=== PATIENT | female | born 1970 | race African-American/Black ===

== ENCOUNTER 2023-09-22 09:30 | Emergency (ER) | payer OTHER, SELFPAY ==
[2023-09-22 09:31] VITALS: BP 159/94; PULSE 61; RESP 17; TEMP 36.6; O2SAT 95; BMI 37.0
[2023-09-22 10:39] LABS: Urine Volume 10mL (spun)
[2023-09-22 10:42] LABS: Bacteria Urine None Seen; Culture Indicated Urine Cult Not Indicated; RBC Urine 1-5/HPF (0-5/HPF); Squamous Epithelial Cell Urine 1-5 /HPF (0-5/HPF); WBC Urine None Seen (0-5/HPF)
--- NOTE | 2023-09-22 11:31 | ED_ITS ---
HPI - Back Pain/Injury General Chief Complaint: Back Pain/Injury Stated Complaint: lower L back pain, fall Time Seen by Provider: 09/22/23 11:23 Source: patient History of Present Illness HPI Narrative: Patient here with . Patient states she had a ground level fall 4 days ago in their camper. Was walking from bedroom into the bathroom and tripped on some cords landing on her left side. Hitting the floor. Patient is not on any blood thinners. No loss of consciousness. Denies any other injuries. Patient has significant history of lumbar surgery. Patient is on a Dilaudid pain pump. They just moved here from [place]. Got here about a week ago. Prior to departure, 9 days ago, patient was placed on Lokelma for potassium 5.3. She has had decreasing GFR number she states. She states they do not know why she is having changes in your kidney function. Back and left hip exposed for skin exam. Denies any other injuries Related Data Home Medications Medication Instructions Recorded Confirmed albuterol sulfate 90 mcg/actuation 2 puff inhalation Q4-6H PRN COPD 09/22/23 09/22/23 aerosol inhaler (Ventolin HFA) celecoxib 200 mg capsule 200 mg PO SEEINSTR 09/22/23 09/22/23 cholecalciferol (vitamin D3) 50 50 mcg PO DAILY 09/22/23 09/22/23 mcg (2,000 unit) capsule (Vitamin D3) cyclobenzaprine 10 mg tablet 10 mg PO BID 09/22/23 09/22/23 diclofenac sodium 1 % topical gel 2 g topical QID 09/22/23 09/22/23 divalproex 500 mg tablet,extended 500 mg PO DAILY 09/22/23 09/22/23 release 24 hr ferrous sulfate 325 mg (65 mg 325 mg PO BID 09/22/23 09/22/23 iron) tablet hydroxyzine HCl 50 mg tablet 50 mg PO BID 09/22/23 09/22/23 lorazepam 2 mg tablet 2 mg PO Q8HR PRN bipolar with 09/22/23 09/22/23 depression losartan 25 mg tablet 25 mg DAILY 09/22/23 09/22/23 multivitamin 1 tab PO DAILY 09/22/23 09/22/23 oxybutynin chloride 5 mg tablet 5 mg PO BID 09/22/23 09/22/23 pregabalin 100 mg capsule 100 mg PO BID 09/22/23 09/22/23 quetiapine 50 mg tablet 100 mg PO BEDTIME 09/22/23 09/22/23 trazodone 150 mg tablet 300 mg PO BEDTIME 09/22/23 09/22/23 Previous Rx's Medication Instructions Recorded oxycodone-acetaminophen 5 mg-325 1 tab PO Q4-6H PRN pain #20 tabs 09/22/23 mg tablet (Percocet) Allergies Allergy/AdvReac Type Severity Reaction Status Date / Time Penicillins Allergy Verified 09/22/23 09:43 Review of Systems Review of Systems Narrative: GENERAL: negative chills, fatigue, malaise, fever, sweats. HEENT: negative sinus pain, ear pain, sore throat RESPIRATORY: negative dyspnea, cough CARDIOVASCULAR: negative chest pain, palpitations GASTROINTESTINAL: negative nausea, vomiting, abdominal pain : negative dysuria, frequency, hematuria MUSCULOSKELETAL: Positive muscle or bony pain SKIN: negative rash, skin lesions NEUROLOGIC: negative weakness, numbness ROS Unobtainable: All systems reviewed & are unremarkable except as noted in HPI and below Patient History Social History Smoking Status: Current every day smoker Smoking Status: Current every day smoker alcohol intake frequency: a few times a week Substance Use Type: does not use Exam Narrative Exam Narrative: GENERAL: in no distress, not toxic not dyspneic HEAD: Normocephalic. Nontender face and scalp. EYES: Pupils equal round ENT: Mucous membranes moist. NECK: Trachea midline. CARDIOVASCULAR: Regular rate and rhythm RESPIRATORY: Clear to auscultation. Breath sounds equal bilaterally. No wheezes, rales, or rhonchi. There is reproducible left lower rib posteriorly. No bruising flail or crepitus of the ribs GASTROINTESTINAL: Abdomen soft, non-tender EXTREMITIES: No gross deformities. Nontender pelvis, nontender left hip knee and ankle. No bruising seen on the left hip. BACK: No flank tenderness. No midline tenderness or step-off of the cervical thoracic spine. There is tenderness to the lower lumbar spine as well as spasming and muscle tightness and tenderness to the left paralumbar muscles. Patient is able to roll herself to the right. No bruising seen. NEURO: AOx4. Clear speech SKIN: Warm and dry PSYCH: Not anxious, is cooperative Initial Vital Signs Initial Vital Signs: Vital Signs Temperature 97.9 F 09/22/23 09:31 Pulse Rate 61 09/22/23 09:31 Respiratory Rate 17 09/22/23 09:31 Blood Pressure 159/94 H 09/22/23 09:31 Pulse Oximetry 95 09/22/23 09:31 Oxygen Delivery Method Room Air 09/22/23 09:31 Course Orders Ordered: Discontinued Medications Hydromorphone HCl (Hydromorphone 1 Mg Inj) 1 mg IV NOW ONE Stop: 09/22/23 11:58 Last Admin: 09/22/23 12:39 Dose: 1 mg Documented By: NAYE Hydromorphone HCl (Hydromorphone 1 Mg Inj) 1 mg IV NOW ONE Stop: 09/22/23 13:40 Last Admin: 09/22/23 13:48 Dose: 1 mg Documented By: DYLON Ketorolac Tromethamine (Ketorolac 30 Mg/Ml Vial) 15 mg IV NOW ONE Stop: 09/22/23 13:40 Last Admin: 09/22/23 13:50 Dose: 15 mg Documented By: DYLON Vital Signs Vital signs: Vital Signs - 8 hr 09/22/23 09:31 09/22/23 12:41 Temperature 97.9 F Pulse Rate 61 94 H Respiratory Rate 17 14 Blood Pressure 159/94 H 186/90 H Pulse Oximetry 95 99 Oxygen Delivery Method Room Air Room Air MDM - Back Pain/Injury Lab Data 09/22/23 12:35 09/22/23 12:35 Labs: Lab Results 09/22/23 09/22/23 Range/Units 10:09 12:35 WBC 5.9 (4.5-11.0) X10^3/uL RBC 3.89 L (4.0-5.2) X10^6/uL Hgb 11.8 L (12.0-16.0) g/dL Hct 35.5 L (36-46) % MCV 91.1 (80-100) fL MCH 30.3 (26-34) PG MCHC 33.2 (30-36) % RDW 15.1 H (11.6-14.8) % Plt Count 273 (150-400) X10^3/uL Neut % (Auto) 68.4 (50-75) % Lymph % (Auto) 19.3 L (25-40) % [place] % (Auto) 9.8 (3-14) % Eos % (Auto) 2.0 (2-4) % Baso % (Auto) 0.5 (0-2) % Neut # (Auto) 4100 (8487-5767) /uL Lymph # (Auto) 1100 (4435-1685) /uL [place] # (Auto) 600 (0-900) /uL Eos # (Auto) 100 (0-450) /uL Baso # (Auto) 0 (0-100) /uL Sodium 140 (137-145) mmol/L Potassium 4.7 (3.4-5.1) mmol/L Chloride 109 H (98-107) mmol/L Carbon Dioxide 29 (22-32) mmol/L BUN 22 H (7-17) mg/dL Creatinine 1.63 H (0.52-1.04) mg/dL Estimated GFR 37 L (>60) mL/min BUN/Creatinine Ratio 13.5 (6-22) Glucose 103 H (70-100) mg/dL Calcium 9.2 (8.4-10.2) mg/dL Total Bilirubin 0.3 (0.2-1.3) mg/dL AST 21 (14-36) IU/L ALT 10 (<35) IU/L Alkaline Phosphatase 97 (38-126) U/L Total Protein 7.6 (6.3-8.2) g/dL Albumin 4.0 (3.5-5.0) g/dL Globulin 3.6 (1.7-4.1) g/dL Albumin/Globulin Ratio 1.1 (1.0-2.8) Urine RBC 1-5/hpf (0-5/HPF) Urine WBC None seen (0-5/HPF) Ur Squamous Epith Cells 1-5 /hpf (0-5/HPF) Urine Bacteria None seen (None) Ur Culture Indicated? Cult not indicated Vol Urine Centrifuged 10ml (spun) Urine Dip Bedside Urine Glucose Negative Bedside Urine Bilirubin - Negative Bedside Urine Ketone - Negative Urine Specific [place] 1.015 Bedside Urine Occult Blood +/- Bedside Urine pH 6.0 Bedside Urine Protein ++ 100 Bedside Urine Urobilinogen - Negative Bedside Urine Nitrite - Negative Bedside Urine Leukocytes - Negative Esterase Imaging Data CT chest abdomen pelvis: Radiologist's Impression: [address] [address] [address] Scan Report Signed Patient: Rafael El MR#: [id number] : 1970 Acct:[id number] Age/Sex: 52 / F Date of Service: 09/22/23 Loc: ED Accession Number: [id number] Procedure: CT chest abd pel wo con Ordering Provider: Alex Rea MD PROCEDURE: CT CHEST ABD PEL WO CON INDICATIONS: Trauma/fall/left side pain TECHNIQUE: After the administration of oral contrast, 5 mm thick sections acquired from the lung apices to the symphysis pubis. 5 mm thick coronal and sagittal reformats acquired, with additional 7 mm coronal MIP reformats through the lungs. For radiation dose reduction, the following was used: automated exposure control, adjustment of mA and/or kV according to patient size. COMPARISON: None. FINDINGS: Image quality: Diagnostic. CHEST: Lower Neck: No enlarged lymph nodes. Thyroid: Enlarged. Few small hypodensities are noted. Axillae: No enlarged lymph nodes. Chest Wall: Unremarkable. Bones: Unremarkable. Lungs and Pleura: No pneumothorax or pleural effusions. Mild periapical emphysematous changes at the apices. Scattered areas of subtle ground-glass involving the bilateral upper lobes and left lower lobe. Few small subpleural and perifissural nodules, favored to represent benign intrapulmonary lymph nodes. Heart: Heart size is normal. No pericardial effusion. Thoracic Vessels: The aorta and pulmonary arteries demonstrate normal size. Mediastinum and Geetha: No enlarged lymph nodes. Esophagus: No wall thickening. No hiatal hernia. ABDOMEN: Liver: No solid mass. Gallbladder: No radiopaque gallstones or wall thickening. Biliary ducts: No biliary dilation. Pancreas: No ductal dilation. Spleen: Size is within normal limits. Adrenal Glands: No adrenal nodules. Kidneys and Ureters: No hydronephrosis. No solid mass. No complex renal cystic lesion which requires follow up. Stomach and Bowel: Postoperative changes noted within the stomach, possibly from gastric bypass. Small hiatal hernia. Normal colonic caliber, without significant wall thickening. Moderate to large burden of stool throughout the colon. Peritoneum: No abnormal intraperitoneal fluid. No free air. Ventral Wall: No hernia. Abdominal Nodes: No retroperitoneal or mesenteric adenopathy by size criteria. Vessels: Aorta and inferior vena cava are normal in size. PELVIS: Pelvic Organs: Unremarkable. Bladder: Unremarkable. Pelvic Nodes: No enlarged lymph nodes. Miscellaneous: No inguinal hernias are seen. Bones: No aggressive osseous abnormality. L3 through S1 spinal fixation hardware. Spinal cord stimulator in place. IMPRESSION: No acute traumatic injury is identified within the chest, abdomen or pelvis. Scattered areas of subtle ground-glass are seen involving the bilateral upper lobes and left lower lobe, nonspecific and may be infectious in etiology. Moderate to large burden of stool throughout the colon, correlate for constipation. Dictated by: Brad Hardy M.D. on 09/22/2023 at 13:30 Approved by: Brad Hardy M.D. on 09/22/2023 at 13:[address] [facility] Narrative Medical decision making narrative: Patient here with . Patient states she had a ground level fall 4 days ago in their camper. Was walking from bedroom into the bathroom and tripped on some cords landing on her left side. Hitting the floor. Patient is not on any blood thinners. No loss of consciousness. Denies any other injuries. Patient has significant history of lumbar surgery. Patient is on a Dilaudid pain pump. They just moved here from [place]. Got here about a week ago. Prior to departure, 9 days ago, patient was placed on Lokelma for potassium 5.3. She has had decreasing GFR number she states. She states they do not know why she is having changes in your kidney function. Back and left hip exposed for skin exam. Denies any other injuries After history and exam CBC CMP CT chest abdomen pelvis Dilaudid [facility] Medical records reviewed: No recent visit for this complaint Differential considered: Includes but not limited to lumbar fracture lumbar strain rib fracture pelvic fracture Lab Test results independently reviewed as above. Pertinent findings: WBC 5.9 hemoglobin 11.8 sodium 140 potassium 4.7 BUN 22 creatinine 1.63 GFR 37 Imaging studies independently reviewed: CT chest abdomen pelvis no acute finding Treatments: Dilaudid Toradol Re-evaluations: 3:29 p.m.. Updated patient results. Pain is much better. Patient is sitting up doing work on the bedside table. Patient has eaten here. She is appointment October 10 and she is requesting short course of pain medication prescription until her 1st appointment as she just moved here. Return precautions reviewed. They desire discharge home Discussion: Appropriate for discharge home. Patient has appointment October 10 with primary care for the 1st time. Return precautions reviewed. Short course of pain medication provided. Nontoxic at discharge. Patient and desire discharge home. Exam and laboratory studies and imaging studies otherwise reassuring. Renal function is essentially at baseline with improved potassium Diagnosis: Contusion of the back, chronic kidney disease Discharge Plan Departure Patient Disposition: Home Clinical Impression: Acute low back pain due to trauma, Encounter for medication refill Chronic kidney disease Qualifiers: Chronic kidney disease stage: unspecified stage Qualified Code(s): N18.9 - Chronic kidney disease, unspecified Instructions: Chronic Kidney Disease, DI for Contusion Activity Restrictions/Additional Instructions: No driving or operating machinery. Short course of pain medication has been provided for you. Please see your new provider October 10 as scheduled. Return if worse if any questions or concerns. You will need to have your kidney function blood work redone with your family doctor. Keep well hydrated. Today's laboratory studies are otherwise reassuring and the CT scan imaging as well. Prescriptions: New oxycodone-acetaminophen [Percocet] 5-325 mg tablet 1 tab PO Q4-6H PRN (Reason: pain) Qty: 20 0RF No Action hydroxyzine HCl 50 mg Tablet 50 mg PO BID divalproex 500 mg Tablet Extended Release 24 Hr 500 mg PO DAILY losartan 25 mg Tablet 25 mg DAILY multivitamin [Daily Multivitamin] Tablet 1 tab PO DAILY celecoxib 200 mg Capsule 200 mg PO SEEINSTR Rx Instructions: with every meal cyclobenzaprine 10 mg Tablet 10 mg PO BID lorazepam 2 mg Tablet 2 mg PO Q8HR PRN (Reason: bipolar with depression) trazodone 150 mg Tablet 300 mg PO BEDTIME ferrous sulfate 325 mg (65 mg iron) Tablet 325 mg PO BID albuterol sulfate [Ventolin HFA] 90 mcg/actuation Hfa Aerosol Inhaler 2 puff INHALATION Q4-6H PRN (Reason: COPD) oxybutynin chloride 5 mg Tablet 5 mg PO BID pregabalin 100 mg Capsule 100 mg PO BID Rx Instructions: every 12 hours quetiapine 50 mg Tablet 100 mg PO BEDTIME diclofenac sodium 1 % Gel 2 g TOPICAL QID Rx Instructions: apply to single elbow, wrist or hand; for hand includes palm/fingers/back of hand cholecalciferol (vitamin D3) [Vitamin D3] 50 mcg (2,000 unit) Capsule 50 mcg PO DAILY Stand Alone Forms: Patient Portal/API
--- NOTE | 2023-09-22 11:57 | DI.CT.S_ITS ---
PROCEDURE: CT CHEST ABD PEL WO CON INDICATIONS: Trauma/fall/left side pain TECHNIQUE: After the administration of oral contrast, 5 mm thick sections acquired from the lung apices to the symphysis pubis. 5 mm thick coronal and sagittal reformats acquired, with additional 7 mm coronal MIP reformats through the lungs. For radiation dose reduction, the following was used: automated exposure control, adjustment of mA and/or kV according to patient size. COMPARISON: None. FINDINGS: Image quality: Diagnostic. CHEST: Lower Neck: No enlarged lymph nodes. Thyroid: Enlarged. Few small hypodensities are noted. Axillae: No enlarged lymph nodes. Chest Wall: Unremarkable. Bones: Unremarkable. Lungs and Pleura: No pneumothorax or pleural effusions. Mild periapical emphysematous changes at the apices. Scattered areas of subtle ground-glass involving the bilateral upper lobes and left lower lobe. Few small subpleural and perifissural nodules, favored to represent benign intrapulmonary lymph nodes. Heart: Heart size is normal. No pericardial effusion. Thoracic Vessels: The aorta and pulmonary arteries demonstrate normal size. Mediastinum and Geetha: No enlarged lymph nodes. Esophagus: No wall thickening. No hiatal hernia. ABDOMEN: Liver: No solid mass. Gallbladder: No radiopaque gallstones or wall thickening. Biliary ducts: No biliary dilation. Pancreas: No ductal dilation. Spleen: Size is within normal limits. Adrenal Glands: No adrenal nodules. Kidneys and Ureters: No hydronephrosis. No solid mass. No complex renal cystic lesion which requires follow up. Stomach and Bowel: Postoperative changes noted within the stomach, possibly from gastric bypass. Small hiatal hernia. Normal colonic caliber, without significant wall thickening. Moderate to large burden of stool throughout the colon. Peritoneum: No abnormal intraperitoneal fluid. No free air. Ventral Wall: No hernia. Abdominal Nodes: No retroperitoneal or mesenteric adenopathy by size criteria. Vessels: Aorta and inferior vena cava are normal in size. PELVIS: Pelvic Organs: Unremarkable. Bladder: Unremarkable. Pelvic Nodes: No enlarged lymph nodes. Miscellaneous: No inguinal hernias are seen. Bones: No aggressive osseous abnormality. L3 through S1 spinal fixation hardware. Spinal cord stimulator in place. IMPRESSION: No acute traumatic injury is identified within the chest, abdomen or pelvis. Scattered areas of subtle ground-glass are seen involving the bilateral upper lobes and left lower lobe, nonspecific and may be infectious in etiology. Moderate to large burden of stool throughout the colon, correlate for constipation. Dictated by: Brad Hardy M.D. on 09/22/2023 at 13:30 Approved by: Brad Hardy M.D. on 09/22/2023 at 13:40
[2023-09-22] MEDS: HYDROMORPHONE 1 MG INJ IV ×2 (12:39→13:48)
[2023-09-22 12:41] VITALS: BP 186/90; PULSE 94; RESP 14; O2SAT 99
[2023-09-22 12:46] LABS: Add Manual Diff / Slide Review NO; Basophils Absolute Auto 0 /uL (0-100); Basophils Percent Auto 0.5 % (0-2); Eosinophils Absolute Auto 100 /uL (0-450); Hematocrit 35.5 % (36-46); Hemoglobin 11.8 g/dL (12.0-16.0); Lymphocytes Absolute Auto 1100 /uL (1100-4500); Lymphocytes Percent Auto 19.3 % (25-40); Mean Corpuscular HGB Conc 33.2 % (30-36); Mean Corpuscular Hemoglobin 30.3 PG (26-34); Mean Corpuscular Volume 91.1 fL (80-100); Monocytes Absolute Auto 600 /uL (0-900); Monocytes Percent Auto 9.8 % (3-14); Neutrophils Absolute Auto 4100 /uL (1500-7000); Neutrophils Percent Auto 68.4 % (50-75); Platelet Count 273 X10^3/uL (150-400); Red Blood Cell Count 3.89 X10^6/uL (4.0-5.2); Red Cell Distribution Width 15.1 % (11.6-14.8); White Blood Cell Count 5.9 X10^3/uL (4.5-11.0)
[2023-09-22 13:11] LABS: Alanine Aminotransferase 10 IU/L (<35); Albumin Globulin Ratio 1.1 (1.0-2.8); Alkaline Phosphatase 97 U/L (38-126); Aspartate Aminotransferase 21 IU/L (14-36); BUN Creatinine Ratio 13.5 (6-22); Bilirubin Total 0.3 mg/dL (0.2-1.3); Blood Urea Nitrogen 22 mg/dL (7-17); Calcium 9.2 mg/dL (8.4-10.2); Carbon Dioxide 29 mmol/L (22-32); Chloride 109 mmol/L (98-107); Estimated Glomerular Filt Rate 37 mL/min (>60); Globulin 3.6 g/dL (1.7-4.1); Glucose 103 mg/dL (70-100); HEMOLYSIS < 15 (0-50); Potassium 4.7 mmol/L (3.4-5.1); Sodium 140 mmol/L (137-145); Total Protein 7.6 g/dL (6.3-8.2)
[2023-09-22] MEDS: KETOROLAC 30 MG/ML VIAL 15 MG IV (13:50)
[2023-09-22 15:44] VITALS: BP 200/99; PULSE 99; RESP 18; O2SAT 96
== END 2023-09-22 15:46 | disposition home or self-care (01) ==
PROVIDERS: Emergency Provider Emergency Medicine
DX: M54.50 Low back pain, unspecified (principal); N18.9 Chronic kidney disease, unspecified; Z76.0 Encounter for issue of repeat prescription; W01.0XXA Fall on same level from slipping, tripping and stumbling without subsequent striking against object, initial encounter; Z79.899 Other long term (current) drug therapy
CPT/HCPCS: 36415; 71250; 74176; 80053; 81003; 81015; 85025; 96374; 96375; 96376; 99284; J1170; J1885

== ENCOUNTER 2023-10-21 09:18 | Emergency (ER) | payer OTHER, SELFPAY ==
[2023-10-21 09:37] VITALS: BP 180/99; PULSE 84; RESP 20; TEMP 36.4; O2SAT 98; BMI 35.5
[2023-10-21 10:21] LABS: Appearance Urine UA SL CLOUDY; Bilirubin Urine UA NEGATIVE (NEGATIVE); Color Urine UA YELLOW; Glucose Urine UA NEGATIVE (Negative); Ketones Urine UA NEGATIVE (NEGATIVE); Leukocyte Esterase Urine UA NEGATIVE (NEGATIVE); Nitrite Urine UA NEGATIVE (Negative); Occult Blood Urine UA 3+ (Negative); Protein Urine UA 3+ (Negative); Specific Gravity Urine UA 1.025 (1.000-1.035); Urobilinogen Urine UA 0.2 E.U./dL (0.2); pH Urine UA 5.5 (4.5-8.0)
[2023-10-21 10:26] LABS: Bacteria Urine None Seen; Culture Indicated Urine Cult Not Indicated; RBC Urine 5-10/HPF (0-5/HPF); Squamous Epithelial Cell Urine 5-10 /HPF (0-5/HPF); Urine Volume 10mL (spun); WBC Urine None Seen (0-5/HPF)
--- NOTE | 2023-10-21 10:27 | ED_ITS ---
HPI - Back Pain/Injury General Chief Complaint: Back Pain/Injury Stated Complaint: chronic back pain, panic attacks Time Seen by Provider: 10/21/23 10:24 Source: patient, RN notes reviewed and old records reviewed Mode of arrival: Wheelchair Limitations: no limitations History of Present Illness HPI Narrative: 52-year-old female with history of chronic back pain, depression, hypertension, chronic kidney disease who has Dilaudid pain pump as well as neurostimulator. Patient was seen on 09/22/2023 here for increased back pain after a ground level fall. Patient states no new falls since then. She describes chronic back pain that has been slowly worsening over time. She did have some flares after moving from [place] to [place] and ultimately had her Dilaudid pain pump refilled that is seemed to improve her for some period of time. Patient states she tends to have more bad days than good at this rate. She has seen Dr. Watkins with PMR and ever it for her back with PMR she states they did not refill her medications would include lorazepam. She states that they asked her to try to get to referral through to be seen for her but they has been unsuccessful and were told there was no room at [facility]. States she was taking some narcotic pain medication for breakthrough pain. Patient has not had any new changes in terms of new weakness, numbness, she has not had any new loss of b owel or bladder control, no fevers, she has not had nausea or vomiting. She states she has chronic paresthesias down her right leg but no increase her new weakness. She did see a primary care physician who she states older she could not have any refills of controlled substances. Related Data Home Medications Medication Instructions Recorded Confirmed albuterol sulfate 90 mcg/actuation 2 puff inhalation Q4-6H PRN COPD 09/22/23 09/22/23 aerosol inhaler (Ventolin HFA) celecoxib 200 mg capsule 200 mg PO SEEINSTR 09/22/23 09/22/23 cholecalciferol (vitamin D3) 50 50 mcg PO DAILY 09/22/23 09/22/23 mcg (2,000 unit) capsule (Vitamin D3) cyclobenzaprine 10 mg tablet 10 mg PO BID 09/22/23 09/22/23 diclofenac sodium 1 % topical gel 2 g topical QID 09/22/23 09/22/23 divalproex 500 mg tablet,extended 500 mg PO DAILY 09/22/23 09/22/23 release 24 hr ferrous sulfate 325 mg (65 mg 325 mg PO BID 09/22/23 09/22/23 iron) tablet hydroxyzine HCl 50 mg tablet 50 mg PO BID 09/22/23 09/22/23 lorazepam 2 mg tablet 2 mg PO Q8HR PRN bipolar with 09/22/23 09/22/23 depression losartan 25 mg tablet 25 mg DAILY 09/22/23 09/22/23 multivitamin 1 tab PO DAILY 09/22/23 09/22/23 oxybutynin chloride 5 mg tablet 5 mg PO BID 09/22/23 09/22/23 pregabalin 100 mg capsule 100 mg PO BID 09/22/23 09/22/23 quetiapine 50 mg tablet 100 mg PO BEDTIME 09/22/23 09/22/23 trazodone 150 mg tablet 300 mg PO BEDTIME 09/22/23 09/22/23 Previous Rx's Medication Instructions Recorded oxycodone-acetaminophen 5 mg-325 1 tab PO Q4-6H PRN pain #20 tabs 09/22/23 mg tablet (Percocet) hydrocodone 5 mg-acetaminophen 325 1 tab PO QID PRN pain #20 tabs 10/21/23 mg tablet lorazepam 0.5 mg tablet 0.5 mg PO TID PRN pain #10 tabs 10/21/23 Allergies Allergy/AdvReac Type Severity Reaction Status Date / Time Penicillins Allergy Verified 09/22/23 09:43 Review of Systems Review of Systems ROS Unobtainable: All systems reviewed & are unremarkable except as noted in HPI and below Patient History Social History Smoking Status: Current every day smoker Smoking Status: Current every day smoker alcohol intake frequency: a few times a week Substance Use Type: does not use Exam Narrative Exam Narrative: GENERAL: Alert and oriented x three, female in mild distress. HEENT: Head normocephalic, atraumatic, EOMI, pupils reactive, face symmetric, moist mucous membranes NECK: Supple, full range of motion CARDIOVASCULAR: Regular rate and rhythm without murmurs, rubs or gallops. RESPIRATORY: Breath sounds equal bilaterally, no wheezes rales or rhonchi. ABDOMEN: Soft, nontender. Normoactive bowel sounds all 4 quadrants. No guarding or rebound, rigidity, no mass : No CVA tenderness BACK: No cervical, thoracic or lumbar vertebral point tenderness. Patient's has incisions consistent with prior surgeries. No erythema warmth or fluid collections. Patient does have increased discomfort with movement particularly [id number] and flexion-extension, Patient has decreased range of motion. No saddle anesthesia. Muscle strength is 5/5 in lower extremities, DTRs are 2/4 and lower extremities. Dorsalis pedis and tibialis pulses are 2+ and lower extremities. Sensation is intact in the lower extremities. EXTREMITIES: Normal range of motion, no clubbing or edema. Neurovascularly intact NEUROLOGICAL: Cranial nerves II through XII grossly intact. Moving all extremities SKIN: Warm, dry, no petechiae, no rashes or lesions. Initial Vital Signs Initial Vital Signs: Vital Signs Temperature 97.6 F 10/21/23 09:37 Pulse Rate 84 10/21/23 09:37 Respiratory Rate 20 10/21/23 09:37 Blood Pressure 180/99 H 10/21/23 09:37 Pulse Oximetry 98 10/21/23 09:37 Oxygen Delivery Method Room Air 10/21/23 09:37 Course Orders Ordered: ED Orders 10/21/23 10:10 Urinalysis and Microscopic Stat Discontinued Medications Hydromorphone HCl (Hydromorphone 1 Mg Inj) 1 mg IM NOW ONE Stop: 10/21/23 10:55 Last Admin: 10/21/23 11:04 Dose: 1 mg Documented By: TSERING Lorazepam (Lorazepam 0.5 Mg Tablet) 1 mg PO NOW ONE Stop: 10/21/23 10:55 Last Admin: 10/21/23 11:04 Dose: 1 mg Documented By: TSERING Vital Signs Vital signs: Vital Signs - 8 hr 10/21/23 11:23 Pulse Rate 85 Respiratory Rate 22 Blood Pressure 154/87 H Pulse Oximetry 98 Oxygen Delivery Method Room Air MDM - Back Pain/Injury Lab Data Labs: Lab Results 10/21/23 Range/Units 10:10 Urine Color Yellow Urine Appearance Sl cloudy Urine pH 5.5 (4.5-8.0) Ur Specific Campus 1.025 (1.000-1.035) Urine Protein 3+ H (Negative) Urine Glucose (UA) Negative (Negative) g/dL Urine Ketones Negative (NEGATIVE) Urine Occult Blood 3+ H (Negative) Urine Nitrate Negative (Negative) Urine Bilirubin Negative (NEGATIVE) Urine Urobilinogen 0.2 (0.2) E.U./dL Ur Leukocyte Esterase Negative (NEGATIVE) Urine RBC 5-10/hpf H (0-5/HPF) Urine WBC None seen (0-5/HPF) Ur Squamous Epith Cells 5-10 /hpf H (0-5/HPF) Urine Bacteria None seen (None) Ur Culture Indicated? Cult not indicated Vol Urine Centrifuged 10ml (spun) MDM Narrative Medical decision making narrative: This is a 52-year-old female with acute on chronic low back pain with no neurostimulator and Dilaudid pain pump in place. Patient did have a fall a month ago and had CT imaging at that which showed no acute change. No new traumatic injuries. Patient has not had any other fevers or infectious changes. She has not had any changes in the pattern of her pain. She has tried to establish with PMR and get referral for a surgical attendant but has been unsuccessful. She did not have any of her chronic pain medications including lorazepam or her chronic narcotic pain medications refilled by primary care or the PMR specialist that she was established with. Discussed with patient alternative options for follow-up. Discussed with patient she can try some of the larger facilities may have options as well. We will give a short course of pain medication refill but we will need to follow up with either primary care or the subspecialist remote computer terminal operator. Patient's urine has not blood, no nitrates or leukocyte esterase. Patient has known chronic kidney disease she has not had any increased flank pain she has not suspicious for stones or other causes. She defers any further imaging or lab workup today. Her GFR was 37 on her last check on 09/22/2023 here at our facility which according to the patient is likely close to her baseline. Discharge Plan Departure Patient Disposition: Home Clinical Impression: Acute exacerbation of chronic low back pain Activity Restrictions/Additional Instructions: You can try some of the larger facilities to see if they have a subspecialist that would be helpful such as [facility], [facility], [facility] or [facility] if [facility] did not accept she was patient. Take medications as prescribed. This medication can make you sleepy do not drive, perform hazardous activities or make any major decisions while taking it. This medication will make you constipated please take a stool softener once to twice daily until stools are soft and regular. Prescriptions were sent to [facility] in [place]. Please return for fevers, new loss of bowel or bladder control, weakness, inability to lift or move your extremities, persistent vomiting, new abdominal back or flank pain or other new or concerning changes. Prescriptions: New hydrocodone-acetaminophen 5-325 mg tablet 1 tab PO QID PRN (Reason: pain) Qty: 20 0RF lorazepam 0.5 mg tablet 0.5 mg PO TID PRN (Reason: pain) Qty: 10 0RF No Action hydroxyzine HCl 50 mg Tablet 50 mg PO BID divalproex 500 mg Tablet Extended Release 24 Hr 500 mg PO DAILY losartan 25 mg Tablet 25 mg DAILY multivitamin [Daily Multivitamin] Tablet 1 tab PO DAILY celecoxib 200 mg Capsule 200 mg PO SEEINSTR Rx Instructions: with every meal cyclobenzaprine 10 mg Tablet 10 mg PO BID lorazepam 2 mg Tablet 2 mg PO Q8HR PRN (Reason: bipolar with depression) trazodone 150 mg Tablet 300 mg PO BEDTIME ferrous sulfate 325 mg (65 mg iron) Tablet 325 mg PO BID albuterol sulfate [Ventolin HFA] 90 mcg/actuation Hfa Aerosol Inhaler 2 puff INHALATION Q4-6H PRN (Reason: COPD) oxybutynin chloride 5 mg Tablet 5 mg PO BID pregabalin 100 mg Capsule 100 mg PO BID Rx Instructions: every 12 hours quetiapine 50 mg Tablet 100 mg PO BEDTIME diclofenac sodium 1 % Gel 2 g TOPICAL QID Rx Instructions: apply to single elbow, wrist or hand; for hand includes palm/fingers/back of hand cholecalciferol (vitamin D3) [Vitamin D3] 50 mcg (2,000 unit) Capsule 50 mcg PO DAILY oxycodone-acetaminophen [Percocet] 5-325 mg tablet 1 tab PO Q4-6H PRN (Reason: pain) Qty: 20 0RF Stand Alone Forms: Patient Portal/API
[2023-10-21] MEDS: HYDROMORPHONE 1 MG INJ IM (11:04)
[2023-10-21] MEDS: LORazepam 0.5 MG TABLET 1 MG PO (11:04)
[2023-10-21 11:23] VITALS: BP 154/87; PULSE 85; RESP 22; O2SAT 98
== END 2023-10-21 11:24 | disposition home or self-care (01) ==
PROVIDERS: Emergency Provider Emergency Medicine
DX: G89.29 Other chronic pain (principal); M54.50 Low back pain, unspecified
CPT/HCPCS: 81001; 96372; 99283; J1170

== ENCOUNTER → 2024-08-30 09:44 | Outpatient (CLI) | payer OTHER, SELFPAY ==
[2024-08-30 10:26] LABS: Add Manual Diff / Slide Review NO; Basophils Absolute Auto 0 /uL (0-100); Basophils Percent Auto 0.3 % (0-2); Eosinophils Absolute Auto 100 /uL (0-450); Eosinophils Percent Auto 2.2 % (2-4); Hematocrit 33.1 % (36-46); Lymphocytes Absolute Auto 1700 /uL (1100-4500); Lymphocytes Percent Auto 26.6 % (25-40); Mean Corpuscular HGB Conc 33.3 % (30-36); Mean Corpuscular Hemoglobin 30.8 PG (26-34); Mean Corpuscular Volume 92.4 fL (80-100); Monocytes Absolute Auto 500 /uL (0-900); Monocytes Percent Auto 8.6 % (3-14); Neutrophils Absolute Auto 3900 /uL (1500-7000); Neutrophils Percent Auto 62.3 % (50-75); Platelet Count 142 X10^3/uL (150-400); Red Blood Cell Count 3.58 X10^6/uL (4.0-5.2); Red Cell Distribution Width 15.1 % (11.6-14.8); White Blood Cell Count 6.3 X10^3/uL (4.5-11.0)
[2024-08-30 10:45] LABS: BUN Creatinine Ratio 14.4 (6-22); Blood Urea Nitrogen 46 mg/dL (7-17); Calcium 9.3 mg/dL (8.4-10.2); Carbon Dioxide 20 mmol/L (22-32); Chloride 108 mmol/L (98-107); Estimated Glomerular Filt Rate 16 mL/min (>60); Glucose 106 mg/dL (70-100); HEMOLYSIS < 15 (0-50); Potassium 4.4 mmol/L (3.4-5.1); Sodium 138 mmol/L (137-145)
[2024-08-30 10:47] LABS: Creatinine Urine Random 83.91 mg/dL
[2024-08-30 11:23] LABS: Microalbumin Urine Random > 114.0 mg/dL (0-1.6)
== END ==
PROVIDERS: PCP Family Medicine; Referring Provider Family Medicine; Visit Provider Family Medicine
DX: I10 Essential (primary) hypertension (principal); N18.9 Chronic kidney disease, unspecified; R23.2 Flushing; R51.9 Headache, unspecified; F31.9 Bipolar disorder, unspecified; Z13.6 Encounter for screening for cardiovascular disorders; R53.83 Other fatigue
CPT/HCPCS: 36415; 80048; 82043; 82570; 85025

== ENCOUNTER → 2024-09-07 07:07 | Outpatient (CLI) | payer OTHER, SELFPAY ==
[2024-09-07 08:30] LABS: BUN Creatinine Ratio 14.5 (6-22); Blood Urea Nitrogen 49 mg/dL (7-17); Calcium 9.1 mg/dL (8.4-10.2); Carbon Dioxide 24 mmol/L (22-32); Chloride 109 mmol/L (98-107); Estimated Glomerular Filt Rate 15 mL/min (>60); Glucose 94 mg/dL (70-100); HEMOLYSIS < 15 (0-50); Potassium 4.9 mmol/L (3.4-5.1); Sodium 139 mmol/L (137-145)
== END ==
PROVIDERS: PCP Family Medicine; Referring Provider Family Medicine; Visit Provider Family Medicine
DX: M79.7 Fibromyalgia (principal); F31.9 Bipolar disorder, unspecified; N18.9 Chronic kidney disease, unspecified; M54.9 Dorsalgia, unspecified; I67.1 Cerebral aneurysm, nonruptured; G89.29 Other chronic pain; I12.9 Hypertensive chronic kidney disease with stage 1 through stage 4 chronic kidney disease, or unspecified chronic kidney disease
CPT/HCPCS: 36415; 80048

== ENCOUNTER 2024-10-12 10:54 | Emergency (ER) | payer OTHER, SELFPAY ==
[2024-10-12] VITALS (30 sets, daily range): BP systolic 162–198; BP diastolic 88–129; PULSE 79–94; RESP 18–38; TEMP 36.2–36.8; O2SAT 95–100; BMI 30.5
[2024-10-12 11:56] LABS: Add Manual Diff / Slide Review NO; Basophils Absolute Auto 0 /uL (0-100); Basophils Percent Auto 0.4 % (0-2); Eosinophils Absolute Auto 100 /uL (0-450); Eosinophils Percent Auto 1.3 % (2-4); Hematocrit 35.3 % (36-46); Hemoglobin 11.9 g/dL (12.0-16.0); Lymphocytes Absolute Auto 1100 /uL (1100-4500); Mean Corpuscular HGB Conc 33.7 % (30-36); Mean Corpuscular Hemoglobin 30.5 PG (26-34); Mean Corpuscular Volume 90.6 fL (80-100); Monocytes Absolute Auto 400 /uL (0-900); Monocytes Percent Auto 5.5 % (3-14); Neutrophils Absolute Auto 5400 /uL (1500-7000); Neutrophils Percent Auto 77.8 % (50-75); Platelet Count 133 X10^3/uL (150-400); Red Blood Cell Count 3.89 X10^6/uL (4.0-5.2); Red Cell Distribution Width 15.4 % (11.6-14.8)
[2024-10-12 11:59] LABS: Alanine Aminotransferase 14 IU/L (<35); Albumin 3.8 g/dL (3.5-5.0); Alkaline Phosphatase 57 U/L (38-126); Aspartate Aminotransferase 25 IU/L (14-36); BUN Creatinine Ratio 9.1 (6-22); Bilirubin Total 0.6 mg/dL (0.2-1.3); Blood Urea Nitrogen 34 mg/dL (7-17); Calcium 8.9 mg/dL (8.4-10.2); Carbon Dioxide 21 mmol/L (22-32); Chloride 110 mmol/L (98-107); Estimated Glomerular Filt Rate 14 mL/min (>60); Globulin 3.9 g/dL (1.7-4.1); Glucose 142 mg/dL (70-99); Potassium 4.9 mmol/L (3.4-5.1); Sodium 138 mmol/L (137-145); Total Protein 7.7 g/dL (6.3-8.2)
[2024-10-12 12:01] LABS: HEMOLYSIS 139 (0-50)
[2024-10-12] MEDS: ONDANSETRON 4 MG/2 ML INJ IV (13:38)
--- NOTE | 2024-10-12 16:07 | PC.NURSE ---
Patient reports to ED d/t nausea, diarrhea and vomiting x 5 days since Sunday 10/08. Reports mostly clear vomit and gagging today. Reports eating an apple yesterday and nothing today. Reports urinating 3 x today which is much less than normal and urine is dark in color. Patient has a hx of CKD. Reports increased back pain uncontrolled by pain pump. Reports a decreasing GFR per labs from lab sameer on Monday 10/09. Awaiting records. Patient is not currently receiving dialysis.
--- NOTE | 2024-10-12 16:48 | PC.NURSE ---
Patient trying to wheel patient out of department to have a smoke. Informed patient and spouse of hospital policy. Patient asked to return to room. Patient expressed frustration.
--- NOTE | 2024-10-12 16:49 | PC.NURSE ---
patient at door again, asking to leave. Asked patient to wait for IV removal and AMA papers.
--- NOTE | 2024-10-12 17:01 | PC.NURSE ---
Patient very anxious to leave, explained that the doctor would be with her as soon as possible. printed patient's lab work for her and advised her to stay and be evaluated if she chose to leave she at minimum needs to follow up with Nephrology. Patient agreeable to wait a little longer
[2024-10-12 17:35] LABS: Bacteria Urine Few (2-10); Culture Indicated Urine Cult Not Indicated; RBC Urine 10-30/HPF (0-5/HPF); Squamous Epithelial Cell Urine 10-30 /HPF (0-5/HPF); Urine Volume 10mL (spun); WBC Urine 1-5/HPF (0-5/HPF)
--- NOTE | 2024-10-12 17:40 | ED.NAVMDI ---
HPI - Nausea/Vomiting/Diarrhea General Chief complaint: Nausea/Vomiting/Diarrhea Stated complaint: N/V/D/ x 4 days stage 4 Kidney failure Time Seen by Provider: 10/12/24 15:52 Source: patient Mode of arrival: Wheelchair History of Present Illness HPI Narrative: 53-year-old female with history of renal insufficiency followed by Nephrology Dr. Caldera through clinic [facility], possible future hemodialysis not yet on hemodialysis or peritoneal dialysis, recent medication changes for hypertension per nephrology, her HCTZ/losartan was discontinued 2 weeks ago, carvedilol was started at 12.5 mg 4 times daily and increased to 25 mg four times daily this last week, amlodipine 5 mg tablet was also started last week. She has ongoing low back pain. She has had recent nausea or vomiting with diarrhea. No black or red stools. She does not recall the results of her recent blood testing sent to [facility] for BUN and creatinine, but recalls her GFR was 15 and then improved to 19 with recent medication changes. Related Data Home Medications Medication Instructions Recorded Confirmed albuterol sulfate 90 mcg/actuation 2 puff inhalation Q4-6H PRN COPD 09/22/23 09/22/23 aerosol inhaler (Ventolin HFA) cholecalciferol (vitamin D3) 50 50 mcg PO DAILY 09/22/23 09/22/23 mcg (2,000 unit) capsule (Vitamin D3) diclofenac sodium 1 % topical gel 2 g topical QID 09/22/23 09/22/23 ferrous sulfate 325 mg (65 mg 325 mg PO BID 09/22/23 09/22/23 iron) tablet multivitamin 1 tab PO DAILY 09/22/23 09/22/23 celecoxib 200 mg capsule (Celebrex) 200 mg PO DAILY 01/17/24 03/03/24 cyclobenzaprine 10 mg tablet 10 mg PO BEDTIME 01/17/24 03/03/24 hydromorphone (PF) 4 mg/mL 2 mg IM Q6H PRN 01/17/24 03/03/24 injection solution Previous Rx's Medication Instructions Recorded valacyclovir 1 gram tablet 1,000 mg PO Q8H #21 tabs 01/17/24 venlafaxine 37.5 mg 75 mg (2 x 37.5 mg) PO DAILY #60 01/25/24 capsule,extended release 24 hr caps divalproex 250 mg tablet,delayed 250 mg PO BID #90 tabs 05/15/24 release (Depakote) trazodone 150 mg tablet 150 mg PO DAILY #30 tabs 05/26/24 pregabalin 100 mg capsule (Lyrica) 100 mg PO DAILY #30 caps 06/06/24 hydroxyzine HCl 25 mg tablet 25 mg PO BID PRN anxiety #30 tabs 09/06/24 losartan 100 1 tab PO DAILY #90 tabs 09/06/24 mg-hydrochlorothiazide 25 mg tablet quetiapine 50 mg tablet 150 mg (3 x 50 mg) PO BEDTIME #90 09/06/24 tabs amlodipine 5 mg tablet 10 mg (2 x 5 mg) PO DAILY #60 tabs 10/12/24 lorazepam 1 mg tablet 1 mg PO BID PRN anxiety #10 tabs 10/12/24 Allergies Allergy/AdvReac Type Severity Reaction Status Date / Time Penicillins Allergy Verified 05/16/24 08:22 Patient History Medical History (Updated 10/12/24 @ 18:56 by Lorenzo Rosa MD) Headache (~2021) Shoulder pain (~2015) Carpal tunnel syndrome (~2015) Anemia (~1985) CKD (chronic kidney disease) Aneurysm HSV (herpes simplex virus) infection HTN (hypertension) Bipolar 1 disorder Fibromyalgia (~2019) Chronic back pain Surgical History (Updated 05/16/24 @ 08:22 by Lilibeth Theodore) History of gastric bypass (~1999) Social History (System 05/16/24 @ 08:22 by Lilibeth Theodore) Smoking Status: Current every day smoker Smoking Status: Current every day smoker tobacco type: cigarettes alcohol intake frequency: a few times a week Exam Narrative Exam Narrative: GENERAL: Well-developed patient, in mild distress. HEAD: Atraumatic. Normocephalic. EYES: Pupils equal round and reactive. Extraocular motions intact. No scleral icterus. No injection or drainage. ENT: Nose without bleeding, purulent drainage. Throat without erythema, tonsillar hypertrophy or exudate. Airway patent. NECK: Trachea midline. Non tender CARDIOVASCULAR: Regular rate and rhythm without murmurs, gallops, or rubs. RESPIRATORY: Clear to auscultation. Breath sounds equal bilaterally. No wheezes, rales, or rhonchi. GASTROINTESTINAL: Abdomen soft, non-tender, nondistended. EXTREMITIES: No edema or joint tenderness. BACK: Nontender without deformity or crepitance. No flank tenderness. NEURO: AOx3. Motor functions grossly nonfocal SKIN: No rash or erythema of visible areas Initial Vital Signs Initial Vital Signs: Vital Signs Temperature 98.3 F 10/12/24 11:15 Pulse Rate 94 H 10/12/24 11:15 Respiratory Rate 19 10/12/24 11:15 Blood Pressure 165/92 H 10/12/24 11:15 Pulse Oximetry 99 10/12/24 11:15 Oxygen Delivery Method Room Air 10/12/24 11:15 Course Orders Ordered: ED Orders 10/12/24 15:53 GI Panel (Film Array) Stat 10/12/24 16:44 Urine Microscopic Stat 10/12/24 18:35 BMP [Basic Metabolic Panel] Stat EKG-12 Lead Stat 10/12/24 18:36 EKG-12 Lead Stat Discontinued Medications Amlodipine Besylate (Amlodipine 5 Mg Tablet) 5 mg PO NOW ONE Stop: 10/12/24 18:48 Last Admin: 10/12/24 19:07 Dose: 5 mg Documented By: SERGEY Amlodipine Besylate (Amlodipine 5 Mg Tablet) 5 mg PO NOW ONE Stop: 10/12/24 18:55 Last Admin: 10/12/24 18:59 Dose: Not Given Documented By: SERGEY Hydralazine HCl (Hydralazine 20 Mg/Ml Vial) 5 mg IV NOW ONE Stop: 10/12/24 17:48 Last Admin: 10/12/24 18:05 Dose: 5 mg Documented By: SERGEY Hydromorphone HCl (Hydromorphone 0.5 Mg Inj) 0.5 mg IV NOW ONE Stop: 10/12/24 17:47 Last Admin: 10/12/24 18:08 Dose: 0.5 mg Documented By: SERGEY Sodium Chloride (Normal Saline 0.9%) 1,000 mls @ 1,000 mls/hr IV BOLUS ONE Stop: 10/12/24 12:20 Last Infusion: 10/12/24 20:40 Dose: Infused Documented By: Admin: 10/12/24 19:06 Dose: 1,000 mls/hr Documented By: SERGEY Lorazepam (Lorazepam 0.5 Mg Tablet) 1 mg PO NOW ONE Stop: 10/12/24 17:53 Last Admin: 10/12/24 18:11 Dose: 1 mg Documented By: SERGEY Ondansetron HCl (Ondansetron 4 Mg/2 Ml Inj) 4 mg IV NOW ONE Stop: 10/12/24 11:22 Last Admin: 10/12/24 13:38 Dose: 4 mg Documented By: KAUSHAL Ondansetron HCl (Ondansetron 4 Mg Odt Prepack) 1 bottle MISC DIRECTED ONE Stop: 10/12/24 20:50 Last Admin: 10/12/24 20:52 Dose: 1 bottle Documented By: SCOTT Vital Signs Vital signs: Vital Signs - 8 hr 10/12/24 13:34 10/12/24 15:00 10/12/24 15:00 Temperature 97.2 F L Pulse Rate 83 84 Respiratory Rate 18 Blood Pressure 166/99 H 198/100 H Pulse Oximetry 97 97 Oxygen Delivery Method 10/12/24 15:30 10/12/24 15:31 10/12/24 15:31 Temperature Pulse Rate 80 79 Respiratory Rate 23 Blood Pressure 188/88 H Pulse Oximetry 97 98 Oxygen Delivery Method 10/12/24 16:00 10/12/24 16:00 10/12/24 16:30 Temperature Pulse Rate 80 83 Respiratory Rate 19 32 H Blood Pressure 171/93 H Pulse Oximetry 97 Oxygen Delivery Method 10/12/24 17:15 10/12/24 17:17 10/12/24 17:17 Temperature Pulse Rate 84 81 Respiratory Rate Blood Pressure 191/102 H Pulse Oximetry 100 99 Oxygen Delivery Method 10/12/24 17:30 10/12/24 17:39 10/12/24 17:39 Temperature Pulse Rate 85 84 Respiratory Rate Blood Pressure 162/93 H Pulse Oximetry 99 96 Oxygen Delivery Method 10/12/24 18:00 10/12/24 18:01 10/12/24 18:01 Temperature Pulse Rate 83 85 Respiratory Rate Blood Pressure 172/124 H Pulse Oximetry 96 96 Oxygen Delivery Method 10/12/24 18:05 10/12/24 18:20 10/12/24 18:20 Temperature Pulse Rate 91 H 80 Respiratory Rate 20 Blood Pressure 172/124 H 184/100 H Pulse Oximetry 97 Oxygen Delivery Method 10/12/24 18:30 10/12/24 18:41 10/12/24 18:41 Temperature Pulse Rate 89 82 Respiratory Rate 21 Blood Pressure 175/93 H Pulse Oximetry 98 Oxygen Delivery Method 10/12/24 19:00 10/12/24 19:06 10/12/24 19:06 Temperature Pulse Rate 82 83 Respiratory Rate 22 38 H Blood Pressure 169/93 H Pulse Oximetry 95 98 Oxygen Delivery Method 10/12/24 19:10 10/12/24 19:10 10/12/24 19:19 Temperature Pulse Rate 81 81 Respiratory Rate 20 Blood Pressure 186/97 H 186/97 H Pulse Oximetry 97 Oxygen Delivery Method Room Air 10/12/24 19:33 10/12/24 19:36 10/12/24 19:36 Temperature Pulse Rate 89 92 H Respiratory Rate 23 Blood Pressure 189/96 H Pulse Oximetry 99 98 Oxygen Delivery Method 10/12/24 19:40 10/12/24 19:40 10/12/24 19:50 Temperature Pulse Rate 85 87 Respiratory Rate 25 H 25 H Blood Pressure 197/100 H Pulse Oximetry 98 98 Oxygen Delivery Method Room Air 10/12/24 19:50 10/12/24 20:00 10/12/24 20:00 Temperature Pulse Rate 85 Respiratory Rate 24 Blood Pressure 175/129 H 182/95 H Pulse Oximetry 98 Oxygen Delivery Method 10/12/24 20:10 10/12/24 20:10 10/12/24 20:20 Temperature Pulse Rate 82 82 Respiratory Rate 23 27 H Blood Pressure 177/97 H Pulse Oximetry 96 96 Oxygen Delivery Method 10/12/24 20:20 10/12/24 20:24 10/12/24 20:36 Temperature Pulse Rate 90 Respiratory Rate Blood Pressure 188/103 H 177/95 H Pulse Oximetry 97 Oxygen Delivery Method MDM - Nausea/Vomiting/Diarrhea Lab Data Attestation: I reviewed the patient's lab results. Lab results narrative: White blood cell count 7000 with hemoglobin 11.9, platelets adequate. BUN 34 with creatinine 3.75 further increased from study last month, liver functions normal. Urinalysis not convincing for infection. 10/12/24 11:38 10/12/24 11:38 Labs: Lab Results 10/12/24 10/12/24 Range/Units 11:38 16:44 WBC 7.0 (4.5-11.0) X10^3/uL RBC 3.89 L (4.0-5.2) X10^6/uL Hgb 11.9 L (12.0-16.0) g/dL Hct 35.3 L (36-46) % MCV 90.6 (80-100) fL MCH 30.5 (26-34) PG MCHC 33.7 (30-36) % RDW 15.4 H (11.6-14.8) % Plt Count 133 L (150-400) X10^3/uL Neut % (Auto) 77.8 H (50-75) % Lymph % (Auto) 15.0 L (25-40) % [place] % (Auto) 5.5 (3-14) % Eos % (Auto) 1.3 L (2-4) % Baso % (Auto) 0.4 (0-2) % Neut # (Auto) 5400 (1562-8670) /uL Lymph # (Auto) 1100 (0713-7066) /uL [place] # (Auto) 400 (0-900) /uL Eos # (Auto) 100 (0-450) /uL Baso # (Auto) 0 (0-100) /uL Sodium 138 (137-145) mmol/L Potassium 4.9 (3.4-5.1) mmol/L Chloride 110 H (98-107) mmol/L Carbon Dioxide 21 L (22-32) mmol/L BUN 34 H (7-17) mg/dL Creatinine 3.75 H (0.52-1.04) mg/dL Estimated GFR 14 L (>60) mL/min BUN/Creatinine Ratio 9.1 (6-22) Glucose 142 H (70-99) mg/dL Calcium 8.9 (8.4-10.2) mg/dL Total Bilirubin 0.6 (0.2-1.3) mg/dL AST 25 (14-36) IU/L ALT 14 (<35) IU/L Alkaline Phosphatase 57 (38-126) U/L Total Protein 7.7 (6.3-8.2) g/dL Albumin 3.8 (3.5-5.0) g/dL Globulin 3.9 (1.7-4.1) g/dL Albumin/Globulin Ratio 1.0 (1.0-2.8) Urine RBC 10-30/hpf H (0-5/HPF) Urine WBC 1-5/hpf (0-5/HPF) Ur Squamous Epith Cells 10-30 /hpf H (0-5/HPF) Urine Bacteria Few (2-10) H (None) Ur Culture Indicated? Cult not indicated Vol Urine Centrifuged 10ml (spun) Urine Dip Bedside Urine Glucose Negative Bedside Urine Bilirubin + 1 Bedside Urine Ketone - Negative Urine Specific [place] 1.020 Bedside Urine Occult Blood +++ Bedside Urine pH 6.0 Bedside Urine Protein +++ 300 Bedside Urine Urobilinogen - Negative Bedside Urine Nitrite - Negative Bedside Urine Leukocytes - Negative Esterase MDM Narrative Medical decision making narrative: 53-year-old female with history of renal insufficiency followed by area Nephrology Dr. Caldera, recent medication changes carvedilol and amlodipine in replacement of discontinued hydrochlorothiazide/losartan, patient has concern about her kidney function, recalls [facility] results GFR of 15 the head increased to 19, but could not recall any other laboratory value information. She has low back pain ongoing. She has had recent nausea vomiting and diarrhea, no black stools, no red stools. No diarrhea or stool specimen for multiple hours while here in the emergency department. BUN and creatinine elevated, further elevated from value last month, though there is no [facility] comparison information available. IVF bolus. Elevated blood pressure, she is already on carvedilol beta-magui, she has been discontinued on ARB/diuretic combination, already on amlodipine. We will consider IV hydralazine dose for now. She feels anxious and we would like medication, we will give oral Ativan dose for now. Patient without hyperkalemia or fluid overload, does not likely need emergent transfer, however would like input from her performance test consultant/day monet regarding further blood pressure management, given her reported recent worsening of renal function, non availability of a recent [facility] outpatient lab testing comparison studies, for discharge antihypertensive regimen recommendations. Consult with Dr. Caldera/day monet, for advice on discharge blood pressure regimen. 1900, case discussed with Dr. Caldera nephrology, who advises patient to go back to her carvedilol 12.5 mg twice daily dosing, and increase the amlodipine from 5 mg to 10 mg. He agrees with fluid bolus given worsening renal function and recent diarrhea. He will arrange outpatient repeat blood draw tomorrow. We will give an additional amlodipine 5 mg dose for now, she had 5 mg earlier today, for 10mg dose today. BP improved. DC home with instructions for decreased Carvedilol and increased Amlodipine doses as outlined above. DC home with family. Discharge Plan Departure Patient Disposition: Home Clinical Impression: Hypertension, Acute renal failure superimposed on chronic kidney disease, Diarrhea Activity Restrictions/Additional Instructions: Kidney insufficiency, recent medication changes for high blood pressure control. Recent diarrhea. Worsening kidney function today. Case discussed with your performance test consultant Dr. Caldera who agreed with a trial of IV fluids to see if there might be some incremental improvement in your renal function, if any component today is due to dehydration from diarrhea. No stool specimen sent to the lab received while in the emergency department for many hours. Your performance test consultant suggested reduction in your carvedilol dose from 25 mg twice daily to 12.5 mg twice daily. He recommended increase of your amlodipine medication from 5 mg daily to 10 mg daily. You also had history of anxiety, had requests for medication, oral lorazepam given, prescription for further lorazepam sent to your pharmacy. Refill of amlodipine 5 mg tablets also sent to your pharmacy, per your request for further refills, until set stable dose established. Dr. Caldera suggested repeat lab draw tomorrow, he will contact you regarding a place to have your blood drawn, check your renal function after IV fluid measures tonight. Take blood pressure medications with changes as above. Follow up with Dr. Caldera for further lab testing as an outpatient tomorrow, to recheck your kidney function, location to be arranged. Return earlier to this/nearest emergency department for any change worsening symptoms or any concerns prior. Prescriptions: New amlodipine 5 mg tablet 10 mg PO DAILY Qty: 60 0RF lorazepam 1 mg tablet 1 mg PO BID PRN (Reason: anxiety) Qty: 10 0RF No Action hydromorphone (PF) 4 mg/mL solution 2 mg IM Q6H PRN cyclobenzaprine 10 mg tablet 10 mg PO BEDTIME celecoxib [Celebrex] 200 mg capsule 200 mg PO DAILY valacyclovir 1 gram tablet 1,000 mg PO Q8H Qty: 21 0RF pregabalin [Lyrica] 100 mg capsule 100 mg PO DAILY Qty: 30 0RF quetiapine 50 mg tablet 150 mg PO BEDTIME Qty: 90 2RF losartan-hydrochlorothiazide 100-25 mg tablet 1 tab PO DAILY Qty: 90 2RF hydroxyzine HCl 25 mg tablet 25 mg PO BID PRN (Reason: anxiety) Qty: 30 3RF venlafaxine 37.5 mg capsule,extended release 24hr 75 mg PO DAILY Qty: 60 1RF divalproex [Depakote] 250 mg tablet,delayed release (DR/EC) 250 mg PO BID Qty: 90 3RF trazodone 150 mg tablet 150 mg PO DAILY Qty: 30 3RF multivitamin [Daily Multivitamin] Tablet 1 tab PO DAILY ferrous sulfate 325 mg (65 mg iron) Tablet 325 mg PO BID albuterol sulfate [Ventolin HFA] 90 mcg/actuation Hfa Aerosol Inhaler 2 puff INHALATION Q4-6H PRN (Reason: COPD) diclofenac sodium 1 % Gel 2 g TOPICAL QID Rx Instructions: apply to single elbow, wrist or hand; for hand includes palm/fingers/back of hand cholecalciferol (vitamin D3) [Vitamin D3] 50 mcg (2,000 unit) Capsule 50 mcg PO DAILY Referrals: Malorie Watt MD [Primary Care Provider] - Stand Alone Forms: Patient Portal/API/Survey
[2024-10-12] MEDS: hydrALAZINE 20 MG/ML VIAL 5 MG IV (18:05)
[2024-10-12] MEDS: HYDROMORPHONE 0.5 MG INJ IV (18:08)
[2024-10-12] MEDS: LORazepam 0.5 MG TABLET 1 MG PO (18:11)
[2024-10-12] MEDS: SODIUM CHLORIDE 0.9% 1,000 ML 1000 ML IV (19:06)
[2024-10-12] MEDS: AMLODIPINE 5 MG TABLET PO (19:07)
--- NOTE | 2024-10-12 19:12 | EKG_ITS ---
[address] [address] Test Date: 2024-10-12 Pat Name: Rafael Dyson Department: Room: Gender: Female Campaign Consultant: MASTER : [id number] Requested By: Order Number: [id number] Reading MD: Erick Sapp Measurements Intervals [place] Rate: 81 P: 63 WI: 190 QRS: -27 QRSD: 92 T: 32 QT: 404 QTc: 469 Interpretive Statements Normal sinus rhythm Biatrial enlargement Left ventricular hypertrophy ( R in aVL , [place] product ) Electronically Signed On 10-13-2024 19:08:13 PDT by Erick Sapp
--- NOTE | 2024-10-12 19:58 | PC.NURSE ---
Per Dr. Neves order- 1st 500ml bolus complete. Lung sounds clear and no signs of fluid overload in lungs at this time. 2nd 500ml bolus started.
[2024-10-12] MEDS: ONDANSETRON 4 MG ODT PREPACK 1 BOTTLE MISC (20:52)
== END 2024-10-12 20:52 | disposition home or self-care (01) ==
PROVIDERS: Emergency Provider Emergency Medicine; PCP Family Medicine
DX: I10 Essential (primary) hypertension (principal); N17.9 Acute kidney failure, unspecified; R19.7 Diarrhea, unspecified
CPT/HCPCS: 36415; 80053; 81003; 81015; 85025; 93005; 96361; 96374; 96375; 99284; J0360; J1171; J2405

== ENCOUNTER → 2025-03-09 10:19 | Outpatient (CLI) | payer OTHER, SELFPAY ==
[2025-03-10 03:36] LABS: Valproic Acid (Depakene) Total 25 ug/mL (50-100)
== END ==
PROVIDERS: PCP Family Medicine; Referring Provider Family Medicine; Visit Provider Student in an Organized Health Care Education/Training Program
DX: Z51.81 Encounter for therapeutic drug level monitoring (principal)
CPT/HCPCS: 36415; 80164